=== PATIENT | female | born 1955 | race Caucasian/White ===

== ENCOUNTER 2017-12-05 13:45 | Outpatient (CLI) | payer BC | END 2017-12-05 13:46 | disposition home or self-care (01) | LOC: BICMAMMO 13:45 | PROVIDERS: ATTEND Obstetrics & Gynecology | DX: Z12.31 Encounter for screening mammogram for malignant neoplasm of breast (principal); Z80.3 Family history of malignant neoplasm of breast | CPT/HCPCS: 77063; 77067 ==

== ENCOUNTER 2018-12-29 11:04 | Outpatient (CLI) | payer BC ==
--- NOTE | 2018-12-29 11:56 | MMO ---
Bilateral MAMMO Bilat Screen [facility]. CLINICAL HISTORY: Patient is 63 years old and is seen for screening. The patient has the following family history of breast cancer: aunt and grandmother. The patient has no personal history of cancer. The patient has a history of right Excisional Biopsy in 1998 - benign and left Excisional Biopsy in 1956 - benign - due to staph infection when she was an .. VIEWS: The views performed were: bilateral craniocaudal with tomosynthesis and bilateral mediolateral oblique with tomosynthesis. FILMS COMPARED: The present examination has been compared to prior imaging studies performed at [facility] on 02/08/2013, 10/01/2014, 12/01/2016 and 12/05/2017. MAMMOGRAM FINDINGS: There are scattered fibroglandular densities. There are stable benign appearing calcifications seen in both breasts. There are no suspicious masses, suspicious calcifications, or new areas of architectural distortion. IMPRESSION: THERE IS NO MAMMOGRAPHIC EVIDENCE OF MALIGNANCY. A ROUTINE FOLLOW-UP MAMMOGRAM IN 1 YEAR IS RECOMMENDED. THE RESULTS OF THIS EXAM WERE SENT TO THE PATIENT. ACR BI-RADS Category 2 - Benign finding MAMMOGRAPHY NOTE: 1. A negative mammogram report should not delay a biopsy if a dominant of clinically suspicious mass is present. 2. Approximately 10% to 15% of breast cancers are not detected by mammography. 3. Adenosis and dense breasts may obscure an underlying neoplasm. Reported by: RADHA CASAREZ MD Electonically Signed: [id number]
== END 2018-12-29 11:05 | disposition home or self-care (01) ==
LOC: BICMAMMO 11:04
PROVIDERS: ATTEND Family Medicine
DX: Z12.31 Encounter for screening mammogram for malignant neoplasm of breast (principal); Z80.3 Family history of malignant neoplasm of breast
CPT/HCPCS: 77063; 77067

== ENCOUNTER 2020-01-01 08:02 | Outpatient (CLI) | payer BC ==
--- NOTE | 2020-01-01 08:40 | MMO ---
Bilateral MAMMO Bilat Screen [facility]. CLINICAL HISTORY: Patient is 64 years old and is seen for screening. The patient has the following family history of breast cancer: aunt and grandmother. The patient has no personal history of cancer. The patient has a history of right Excisional Biopsy in 1998 - benign and left Excisional Biopsy in 1956 - benign - due to staph infection when she was an .. VIEWS: The views performed were: bilateral craniocaudal with tomosynthesis and bilateral mediolateral oblique with tomosynthesis. FILMS COMPARED: The present examination has been compared to prior imaging studies performed at [facility] on 10/01/2014, 12/01/2016, 12/05/2017 and 12/29/2018. This study has been interpreted with the assistance of computer-aided detection. MAMMOGRAM FINDINGS: There are scattered fibroglandular densities. Finding 1: There are stable benign appearing calcifications seen in both breasts. Finding 2: There are stable benign appearing densities seen in both breasts. There are no suspicious masses, suspicious calcifications, or new areas of architectural distortion. IMPRESSION: THERE IS NO MAMMOGRAPHIC EVIDENCE OF MALIGNANCY. A ROUTINE FOLLOW-UP MAMMOGRAM IN 1 YEAR IS RECOMMENDED. THE RESULTS OF THIS EXAM WERE SENT TO THE PATIENT. ACR BI-RADS Category 2 - Benign finding MAMMOGRAPHY NOTE: 1. A negative mammogram report should not delay a biopsy if a dominant of clinically suspicious mass is present. 2. Approximately 10% to 15% of breast cancers are not detected by mammography. 3. Adenosis and dense breasts may obscure an underlying neoplasm. Reported by: JOAQUINA RAMOS MD Electonically Signed: [id number]
== END 2020-01-01 08:03 | disposition home or self-care (01) ==
LOC: BICMAMMO 08:02
PROVIDERS: ATTEND Family Medicine
DX: Z12.31 Encounter for screening mammogram for malignant neoplasm of breast (principal); Z80.3 Family history of malignant neoplasm of breast; Z91.89 Other specified personal risk factors, not elsewhere classified
CPT/HCPCS: 77063; 77067

== ENCOUNTER 2021-02-06 08:07 | Outpatient (CLI) | payer BC | END 2021-02-06 08:08 | disposition home or self-care (01) | LOC: BICMAMMO 08:07 | PROVIDERS: ATTEND Family Medicine | DX: Z12.31 Encounter for screening mammogram for malignant neoplasm of breast (principal); Z80.3 Family history of malignant neoplasm of breast | CPT/HCPCS: 77063; 77067 ==

== ENCOUNTER 2021-12-01 16:15 | Outpatient (CLI) | payer BC | END 2021-12-01 16:16 | disposition home or self-care (01) | LOC: LABBT 16:15 | PROVIDERS: ATTEND Ophthalmology Retina Specialist | DX: H35.342 Macular cyst, hole, or pseudohole, left eye (principal) | CPT/HCPCS: 87811 ==

== ENCOUNTER 2021-12-03 06:35 | Day surgery (SDC) | payer BC ==
[2021-12-02 12:39] VITALS: BMI 29.2
[~2021-12-03 06:35] MED LIST: Fluorouracil 100 MG, Enoxaparin Sodium 25 MG, EPINEPHrine 0.3 MG in Ophthalmic Irrigati... IRR SCH; Midazolam HCl 2 mg/2 ml Vial ONE
[2021-12-03] MEDS ORDERED: fentaNYL Citrate/PF 100 MCG/2 ML SYRINGE ONE ×2 (06:36→08:22)
[2021-12-03] MEDS ORDERED: PROPOFOL 0 ML ONE (06:36)
[2021-12-03] MEDS ORDERED: Cyclopentolate 1% Opth Drop 2 ML BOT ONE (06:57)
[2021-12-03] MEDS ORDERED: Phenylephrine 2.5% Ophth Soln 5 ML BOT ONE (06:57)
[2021-12-03] MEDS ORDERED: PROPOFOL 20 ML ONE (08:22)
[2021-12-03] MEDS ORDERED: Midazolam HCl 2 mg/2 ml Vial ONE (08:22)
[2021-12-03] MEDS ORDERED: Bupivacaine 0.75% 10 ML VIAL ONE (08:25)
[2021-12-03] MEDS ORDERED: CEFAZOLIN 1 GM VIAL ONE (08:25)
[2021-12-03] MEDS ORDERED: Lidocaine 1% PF 5 ML VIAL ONE (08:25)
[2021-12-03] MEDS ORDERED: Lidocaine 4% PF 5 ML AMP ONE (08:25)
[2021-12-03] MEDS ORDERED: PROPOFOL 200 MG/20 ML VIAL ONE (08:25)
[2021-12-03] MEDS ORDERED: Indocyanine Green 25 MG/10 ML VIAL ONE (08:25)
[2021-12-03] MEDS ORDERED: Enoxaparin Sodium 30 MG/0.3 ML SYRINGE ONE (08:25)
[2021-12-03] MEDS ORDERED: Triamcinolone 40 MG/ML VIAL ONE (08:25)
[2021-12-03] MEDS ORDERED: Maxitrol 0.1% Opth Oint 3.5 GM TUBE ONE (08:25)
== END 2021-12-03 10:05 | disposition home or self-care (01) ==
LOC: SDC 06:35
PROVIDERS: ATTEND Ophthalmology Retina Specialist
PROC: 08NF3ZZ Release Left Retina, Percutaneous Approach (ICD-10-PCS; principal; 2021-12-03)
PROC: 08T53ZZ Resection of Left Vitreous, Percutaneous Approach (ICD-10-PCS; principal; 2021-12-03)
DX: H35.342 Macular cyst, hole, or pseudohole, left eye (principal); Z88.0 Allergy status to penicillin
CPT/HCPCS: 67025; J0171; J0690; J1650; J2250; J2704; J3301; J3490; J9190

== ENCOUNTER 2021-12-21 15:01 | Outpatient (CLI) | payer BC | END 2021-12-21 15:02 | disposition home or self-care (01) | LOC: LABBT 15:01 | PROVIDERS: ATTEND Ophthalmology Retina Specialist | DX: Z20.822 Contact with and (suspected) exposure to COVID-19 (principal) | CPT/HCPCS: 87811 ==

== ENCOUNTER 2021-12-24 06:31 | Day surgery (SDC) | payer BC ==
[2021-12-21 13:40] VITALS: BMI 28.8
[~2021-12-24 06:31] MED LIST changes: -Midazolam HCl 2 mg/2 ml Vial ONE
[2021-12-24] MEDS ORDERED: Cyclopentolate 1% Opth Drop 2 ML BOT ONE (06:37)
[2021-12-24] MEDS ORDERED: Phenylephrine 2.5% Ophth Soln 5 ML BOT ONE (06:37)
[2021-12-24] MEDS ORDERED: PROPOFOL 20 ML ONE (08:01)
[2021-12-24] MEDS ORDERED: Indocyanine Green 25 MG/10 ML VIAL ONE (08:27)
[2021-12-24] MEDS ORDERED: Lidocaine 1% PF 5 ML VIAL ONE (08:27)
[2021-12-24] MEDS ORDERED: Maxitrol 0.1% Opth Oint 3.5 GM TUBE ONE (08:27)
[2021-12-24] MEDS ORDERED: Bupivacaine 0.75% 10 ML VIAL ONE (08:27)
[2021-12-24] MEDS ORDERED: CEFAZOLIN 1 GM VIAL ONE (08:27)
[2021-12-24] MEDS ORDERED: Lidocaine 4% PF 5 ML AMP ONE (08:27)
[2021-12-24] MEDS ORDERED: Triamcinolone 40 MG/ML VIAL ONE (08:27)
== END 2021-12-24 09:56 | disposition home or self-care (01) ==
LOC: SDC 06:31
PROVIDERS: ATTEND Ophthalmology Retina Specialist
PROC: 08T53ZZ Resection of Left Vitreous, Percutaneous Approach (ICD-10-PCS; principal; 2021-12-24)
PROC: 08NF3ZZ Release Left Retina, Percutaneous Approach (ICD-10-PCS; principal; 2021-12-24)
DX: H35.342 Macular cyst, hole, or pseudohole, left eye (principal); Z88.0 Allergy status to penicillin
CPT/HCPCS: 67025; J0171; J0690; J1650; J2704; J3301; J3490; J9190

== ENCOUNTER 2023-12-08 07:25 | Day surgery (SDC) | payer BC ==
[2023-12-07 11:49] VITALS: BMI 30.4
[~2023-12-08 07:25] MED LIST changes: +Fluorouracil 100 MG, Enoxaparin 25 MG, EPINEPHrine 0.3 MG in Ophthalmic Irrigation Solu... IRR SCH; -Fluorouracil 100 MG, Enoxaparin Sodium 25 MG, EPINEPHrine 0.3 MG in Ophthalmic Irrigati... IRR SCH
[2023-12-08] MEDS ORDERED: PHENYLephrine 2.5% Ophth Soln 15 ml Bottle ONE (07:49)
[2023-12-08] MEDS ORDERED: Cyclopentolate 1% Opth Drop 2 ML BOT ONE (07:50)
[2023-12-08] MEDS ORDERED: Midazolam HCl 2 mg/2 ml Vial ONE (08:38)
[2023-12-08] MEDS ORDERED: fentaNYL 50 mcg/mL 1 mL Vial ONE ×2 (08:38→09:03)
[2023-12-08] MEDS ORDERED: Indocyanine Green 25 MG/10 ML VIAL ONE (08:57)
[2023-12-08] MEDS ORDERED: Triamcinolone 40 MG/ML VIAL ONE (08:57)
[2023-12-08] MEDS ORDERED: Maxitrol 0.1% Opth Oint 3.5 GM TUBE ONE (08:57)
[2023-12-08] MEDS ORDERED: PROPOFOL 200 MG/20 ML VIAL ONE (08:57)
[2023-12-08] MEDS ORDERED: Lidocaine 4% PF 5 ML AMP ONE (08:57)
[2023-12-08] MEDS ORDERED: Lidocaine 1% PF 5 ML VIAL ONE (08:57)
[2023-12-08] MEDS ORDERED: Bupivacaine 0.75% 10 ML VIAL ONE (08:57)
[2023-12-08] MEDS ORDERED: CEFAZOLIN 1 GM VIAL ONE (08:57)
[2023-12-08] MEDS ORDERED: Enoxaparin 30 MG (0.3 mL) SYRINGE ONE (08:57)
== END 2023-12-08 10:32 | disposition home or self-care (01) ==
LOC: SDC 07:25
PROVIDERS: ATTEND Ophthalmology Retina Specialist
PROC: 08T43ZZ Resection of Right Vitreous, Percutaneous Approach (ICD-10-PCS; principal; 2023-12-08)
DX: H35.341 Macular cyst, hole, or pseudohole, right eye (principal); Z88.0 Allergy status to penicillin; Z88.5 Allergy status to narcotic agent
CPT/HCPCS: 67025; J0171; J0690; J1650; J2250; J2704; J3010; J3301; J3490; J9190

== ENCOUNTER 2025-04-03 13:16 | Outpatient (CLI) | payer MEDICARE | END 2025-04-03 13:17 | disposition home or self-care (01) | LOC: SCSBT 13:16 | PROVIDERS: ATTEND Student in an Organized Health Care Education/Training Program | DX: Z78.0 Asymptomatic menopausal state (principal); M81.0 Age-related osteoporosis without current pathological fracture | CPT/HCPCS: 77080 ==